=== PATIENT | female | born 1945 | race Caucasian/White ===

== ENCOUNTER 2017-03-30 19:05 | Emergency (ER) | payer MEDICARE, BC ==
[2017-03-30] MEDS ORDERED: Sodium Chloride 0.9% 10 ML Syringe FLUSH PRN (21:34)
[2017-03-30] MEDS ORDERED: Labetalol 20 MG/4 ML Syringe IVPUSH ONE (21:34)
[2017-03-30] MEDS ORDERED: Meclizine 25 MG Tab PO ONE (21:35)
--- NOTE | 2017-03-30 23:24 | EDM.PDOC ---
ED HPI GENERAL MEDICAL PROBLEM - General Chief Complaint: Neuro Symptoms/Deficits Stated Complaint: DIZZY SPELLS Time Seen by Provider: 03/30/17 20:00 Source of Information: Reports: Patient, Family History Limitations: Reports: No Limitations - History of Present Illness INITIAL COMMENTS - FREE TEXT/NARRATIVE: pt got up this am and felt like objects were moving in front of her. She noted when she turned her head to look at her alarm clock that she felt like things were not steady. She had an episode tonight that lasted for 2-3 minutes that was very severe. Onset: Today, Other ( She has had episodes on and off all day. ) Duration: Hour(s): Location: Reports: Head, Other ( vertigo like symptoms. ) Associated Symptoms: Reports: Other ( she had pressure in her head but not a true headache. ) - Related Data Allergies Allergy/AdvReac Type Severity Reaction Status Date / Time cortisone Allergy Other Verified 05/20/16 14:41 Penicillins Allergy Rash Verified 03/10/13 13:14 Home Meds: Home Meds Aspirin [Lo-Dose Aspirin EC] 1 tab PO DAILY 05/20/16 [History] Levothyroxine [Synthroid] 1 tab PO DAILY 05/20/16 [History] Omeprazole 1 cap PO DAILY 05/20/16 [History] Simvastatin [Zocor] 1 tab PO BEDTIME 05/20/16 [History] Calcium Carbonate/Vitamin D3 [Calcium 600 + Vit D 200] 600 mg PO DAILY 03/30/17 [History] Latanoprost [Xalatan 0.005% Ophth Soln] 2.5 ml EYEBOTH BEDTIME 03/30/17 [History ] Past Medical History [employer] History: Reports: Endocrine/Metabolic History: Reports: Hypoparathyroidism - Infectious Disease History Infectious Disease History: Reports: Chicken Pox - Past Surgical History GI Surgical History: Reports: Cholecystectomy Female Surgical History: Reports: Hysterectomy Social & Family History - Tobacco Use Smoking Status *Q: Never Smoker Second Hand Smoke Exposure: No - Caffeine Use Caffeine Use: Reports: None - Recreational Drug Use Recreational Drug Use: No ED ROS GENERAL - Review of Systems Review Of Systems: See Below Constitutional: Reports: No Symptoms, Other ( Pt has had an upper resp infection recently ) HEENT: Reports: No Symptoms, Vertigo Respiratory: Reports: No Symptoms Cardiovascular: Reports: No Symptoms, Other (pt had no chest pain. ) Endocrine: Reports: No Symptoms GI/Abdominal: Reports: No Symptoms : Reports: No Symptoms Musculoskeletal: Reports: No Symptoms Skin: Reports: No Symptoms Neurological: Reports: Dizziness Psychiatric: Reports: Anxiety ED EXAM, NEURO - Physical Exam Exam: See Below Text/Narrative:: pt arrived with a feeling of pressure in her head. She had a bp of 180/120. She states that she normally has lower bp. Her bp did consistantly stay up. Exam Limited By: No Limitations General Appearance: Alert, Anxious, Mild Distress, Other (pupils are equal and reactive. ) Nose: Normal Inspection Throat/Mouth: Normal Inspection Head Exam: Atraumatic Neck: Other (no definite carotid bruit) Respiratory/Chest: No Respiratory Distress Cardiovascular: Regular Rate, Rhythm, Other ( ekg looked good) (Female) Exam: Deferred Rectal (Female) Exam: Deferred Neurological: Alert, Normal Gait Back Exam: Normal Inspection Extremities: Normal Inspection, Other (normal strength bilaterlly. ) Course - Vital Signs Last Recorded V/S: Last Vital Signs Temp 36.6 C 03/30/17 22:13 Pulse 77 03/30/17 22:13 Resp 16 03/30/17 22:13 BP 144/87 H 03/30/17 22:13 Pulse Ox 95 03/30/17 22:13 Orthostatic Blood Pressure [ 184/113 Standing] Orthostatic Blood Pressure [ 180/103 Sitting] Orthostatic Blood Pressure [ 177/96 Supine] - Orders/Labs/Meds Orders: Active Orders 24 hr Category Date Time Status EKG Documentation Completion [RC] ASDIRECTED Care 03/30/17 20:25 Active Orthostatic Vital Signs [RC] ASDIRECTED Care 03/30/17 20:21 Active Sodium Chloride 0.9% [Saline Flush] Med 03/30/17 21:34 Active 10 ml FLUSH ASDIRECTED PRN Saline Lock Insert [OM.PC] Routine Oth 03/30/17 21:34 Ordered EKG 12 Lead [EK] Routine Ther 03/30/17 20:25 Ordered Medication Orders Sodium Chloride (Saline Flush) 10 ml FLUSH ASDIRECTED PRN PRN Reason: Keep Vein Open Last Admin: 03/30/17 21:48 Dose: 10 ml Labs: Laboratory Tests 03/30/17 03/30/1718 Range/Units 20:20 20:33 20:33 WBC 6.4 (4.5-11.0) K/uL RBC 5.05 (3.30-5.50) M/uL Hgb 14.5 (12.0-15.0) g/dL Hct 43.6 (36.0-48.0) % MCV 86 (80-98) fL MCH 29 (27-31) pg MCHC 33 (32-36) % Plt Count 298 (150-400) K/uL Neut % (Auto) 72 H (36-66) % Lymph % (Auto) 16 L (24-44) % Cass % (Auto) 9 H (2-6) % Eos % (Auto) 3 (2-4) % Baso % (Auto) 1 (0-1) % Sodium 144 (140-148) mmol/L Potassium 4.4 (3.6-5.2) mmol/L Chloride 106 (100-108) mmol/L Carbon Dioxide 29 (21-32) mmol/L Anion Gap 9.2 (5.0-14.0) mmol/L BUN 9 (7-18) mg/dL Creatinine 1.0 (0.6-1.0) mg/dL Est Cr Clr Drug Dosing 41.40 mL/min Estimated GFR (MDRD) 55 L (>60) Glucose 115 H (74-106) mg/dL Calcium 9.2 (8.5-10.1) mg/dL Total Bilirubin 0.2 (0.2-1.0) mg/dL AST 18 (15-37) U/L ALT 22 (12-78) U/L Alkaline Phosphatase 100 (46-116) U/L Total Protein 6.9 (6.4-8.2) g/dL Albumin 3.8 (3.4-5.0) g/dL Globulin 3.1 (2.3-3.5) g/dL Albumin/Globulin Ratio 1.2 (1.2-2.2) Urine Color Yellow Urine Appearance Clear Urine pH 8.0 (4.5-8.0) Ur Specific [place] 1.015 (1.008-1.030) Urine Protein Negative (NEGATIVE) mg/dL Urine Glucose (UA) Normal (NEGATIVE) mg/dL Urine Ketones Negative (NEGATIVE) mg/dL Urine Occult Blood Negative (NEGATIVE) Urine Nitrite Negative (NEGATIVE) Urine Bilirubin Negative (NEGATIVE) Urine Urobilinogen Normal (NORMAL) mg/dL Ur Leukocyte Esterase Moderate (NEGATIVE) Urine RBC 0-5 (0-5) Urine WBC 0-5 (0-5) Ur Epithelial Cells Rare Amorphous Sediment Rare Urine Bacteria Few Urine Mucus Not seen Meds: Medications Generic Name Dose Route Start Last Admin Trade Name Freq PRN Reason Stop Dose Admin Sodium Chloride 10 ml 03/30/17 21:34 03/30/17 21:48 Saline Flush FLUSH 10 ml ASDIRECTED PRN Administration Keep Vein Open Discontinued Medications Generic Name Dose Route Start Last Admin Trade Name Freq PRN Reason Stop Dose Admin Labetalol HCl 20 mg 03/30/17 21:34 03/30/17 21:49 Normodyne IVPUSH 03/30/17 21:35 20 mg NOW ONE Administration Protocol Meclizine HCl 25 mg 03/30/17 21:35 03/30/17 21:42 Antivert PO 03/30/17 21:36 25 mg ONETIME ONE Administration - Re-Assessments/Exams Free Text/Narrative Re-Assessment/Exam: 03/30/17 23:25 pt was noted to have normal labs and urine. She does not have a fever. She was given labastiol 20mg iv and her bp did come down to normal. She was given antivert 25 mg. She feels better but she still has a little vertigo when she gets upand down. Departure - Departure Time of Disposition: 23:27 Disposition: Home, Self-Care 01 Condition: Fair Clinical Impression: Vertigo, Inner ear dysfunction, Hypertension - Discharge Information Referrals: Caroline Hernandez [employer] [Primary Care Provider] - Care Plan Goals: appt with Caroline Hernandez or Wednesday. , lopressor 12.5 mg daily, antivert 25 tid prn for vertigo. rtc if pt should get worse, low activity - My Orders Last 24 Hours: My Active Orders 03/30/17 20:21 Orthostatic Vital Signs [RC] ASDIRECTED 03/30/17 20:25 EKG Documentation Completion [RC] ASDIRECTED EKG 12 Lead [EK] Routine 03/30/17 21:34 Sodium Chloride 0.9% [Saline Flush] 10 ml FLUSH ASDIRECTED PRN Saline Lock Insert [OM.PC] Routine - Assessment/Plan Last 24 Hours: My Active Orders 03/30/17 20:21 Orthostatic Vital Signs [RC] ASDIRECTED 03/30/17 20:25 EKG Documentation Completion [RC] ASDIRECTED EKG 12 Lead [EK] Routine 03/30/17 21:34 Sodium Chloride 0.9% [Saline Flush] 10 ml FLUSH ASDIRECTED PRN Saline Lock Insert [OM.PC] Routine
== END 2017-03-30 23:55 | disposition home or self-care (01) ==
LOC: JP.ED 19:05
DX: I10 Essential (primary) hypertension (principal); H83.2X9 Labyrinthine dysfunction, unspecified ear; Z79.82 Long term (current) use of aspirin; Z79.899 Other long term (current) drug therapy; Z88.0 Allergy status to penicillin; Z88.8 Allergy status to other drugs, medicaments and biological substances
CPT/HCPCS: 36415; 80053; 81001; 85025; 93005; 96374; 99284; A9270; J7050; 93010; 99283

== ENCOUNTER 2020-11-15 07:30 | Day surgery (SDC) | payer MEDICARE, BC ==
[2020-11-15] MEDS ORDERED: Sodium Chloride 0.9% 1,000 ML IV SCH (07:50)
[2020-11-15] MEDS ORDERED: fentaNYL 100 MCG/2 ML SDV ONE (08:13)
[2020-11-15] MEDS ORDERED: Propofol 200 MG/20 ML SDV ONE (08:14)
[2020-11-15] MEDS ORDERED: Midazolam 1 MG/ML 2 ML SDV ONE (08:14)
--- NOTE | 2020-11-17 15:52 | OR ---
DATE OF PROCEDURE: 11/15/2020 SURGEON: Raoul Malik MD PROCEDURE: Colonoscopy. FINDINGS: Normal colonoscopy. COMPLICATIONS: None. FUR CUTTER: None. ANESTHESIA: MAC. PREOPERATIVE DIAGNOSIS: Screening colonoscopy. POSTOPERATIVE DIAGNOSIS: Screening colonoscopy. RISKS: Risks, benefits, alternatives, and limitations including but not limited to infection, bleeding, perforation, false positives and false negatives were explained to the patient and she wished to proceed. PROCEDURE IN DETAIL: The patient was placed in left lateral decubitus position. Digital rectal exam was performed without abnormality. Scope was introduced and advanced atraumatically to the ileocecal valve. A photo was taken of the appendiceal orifice. Scope was brought back to the ascending, transverse, descending colon, and retroflexed. No evidence of old or new blood. No masses. No polyps. No diverticulosis. No abnormalities on retroflexion. Greater than 8 minutes was spent removing the scope. Approximately 90% of the luminal surface could be seen. The patient tolerated the procedure well. Raoul Malik MD /[id number]
== END 2020-11-15 10:35 | disposition home or self-care (01) ==
LOC: JP.SDS 07:30
PROVIDERS: ATTEND Surgery
DX: Z12.11 Encounter for screening for malignant neoplasm of colon (principal); E78.5 Hyperlipidemia, unspecified; I10 Essential (primary) hypertension; E03.9 Hypothyroidism, unspecified; Z88.0 Allergy status to penicillin
CPT/HCPCS: G0121; J2250; J2704; J3010; J7030